=== PATIENT | male | born 1980 | race African-American/Black ===

== ENCOUNTER 2018-12-13 11:17 | Emergency (ER) | payer OTHER ==
[2018-12-13] MEDS: DIPHTH/TET/ACEL PERTUSS (ADULT) 0.5 ML VIAL IM* (11:56)
[2018-12-13] MEDS: LIDOCAINE 2%/EPI MPF (SDV) 20 ML VIAL INJ (12:04)
== END 2018-12-13 13:43 | disposition home or self-care (01) ==
LOC: FTE 13:43
DX: S61.412A Laceration without foreign body of left hand, initial encounter (principal); S66.327A Laceration of extensor muscle, fascia and tendon of left little finger at wrist and hand level, initial encounter; X99.8XXA Assault by other sharp object, initial encounter; Z23 Encounter for immunization
CPT/HCPCS: 12002; 90471; 90715; 99283-25

== ENCOUNTER 2018-12-16 12:07 | Emergency (ER) | payer SELFPAY, OTHER | END 2018-12-16 18:15 | disposition left against medical advice (07) | LOC: FTE 18:15 | DX: Z53.21 Procedure and treatment not carried out due to patient leaving prior to being seen by health care provider (principal) ==

== ENCOUNTER 2018-12-20 11:16 | Emergency (ER) | payer SELFPAY | END 2018-12-20 14:30 | disposition left against medical advice (07) | LOC: FTE 14:30 | DX: Z53.21 Procedure and treatment not carried out due to patient leaving prior to being seen by health care provider (principal) ==

== ENCOUNTER 2018-12-21 19:04 | Emergency (ER) | payer SELFPAY | END 2018-12-21 22:45 | disposition left against medical advice (07) | LOC: FTE 19:04 → E/R 22:45 | DX: Z53.21 Procedure and treatment not carried out due to patient leaving prior to being seen by health care provider (principal) ==